=== PATIENT | male | born 1955 ===

== ENCOUNTER 2022-05-18 10:42 | Day surgery (SDC) | payer OTHER ==
[~2022-05-18 10:42] MED LIST: CARDIZEM30 MG PO; CHILDREN'S ASPI81 MG PO; FENOFIB PO; SIMVAST PO
[2022-05-18] MEDS ORDERED: TYLENOL ARTHRI650 MG PO (16:58)
[2022-05-18] MEDS ORDERED: MIRALAX17 GM PO (16:58)
[2022-05-18] MEDS ORDERED: TRAMADOL HCL50 MG PO (16:58)
== END 2022-05-18 23:40 | disposition home or self-care (01) ==
LOC: CIR.AMB 10:42
PROVIDERS: ATTEND Surgery
DX: K40.90 Unilateral inguinal hernia, without obstruction or gangrene, not specified as recurrent (principal); K42.9 Umbilical hernia without obstruction or gangrene; Z20.822 Contact with and (suspected) exposure to COVID-19; I10 Essential (primary) hypertension
CPT/HCPCS: 49650; 49594; C1781